=== PATIENT | female | born 1980 | race Caucasian/White ===

== ENCOUNTER 2016-08-24 21:54 | Emergency (ER) ==
[2016-08-24 22:37] VITALS: BP 120/68
[2016-08-24 22:57] LABS: URINE SOURCE CLEAN CATCH
[2016-08-24 23:11] LABS: BILIRUBIN URINE NEGATIVE (NEGATIVE); BLOOD URINE 1+ (NEGATIVE); CLARITY CLEAR (CLEAR); COLOR YELLOW; GLUCOSE URINE NEGATIVE (NEGATIVE); LEUKOCYTES URINE NEGATIVE (NEGATIVE); NITRITE URINE NEGATIVE (NEGATIVE); PH URINE 6.5; PROTEIN URINE NEGATIVE (NEGATIVE); URINE MICROSCOPIC NEEDED? YES; UROBILINOGEN URINE NORMAL
--- NOTE | 2016-08-24 23:18 | PROVIDER DOCUMENTATION ---
HPI-General Adult - General Chief Complaint: Flu Symptoms Stated Complaint: FLU SX 23 WKS PREG Time Seen by Provider: 08/24/16 23:01 Source: patient Allergies/Adverse Reactions: Patient Allergies Allergy/AdvReac Type Severity Reaction Status Date / Time fluoxetine HCl * Allergy ANAPHYLAXIS Verified 08/03/16 22:08 [From Prozac] Home Medications: Pnv Comb.no58/Iron Bisgly/FA [ Capsule] 1 cap PO DAILY 08/03/16 - History of Present Illness -Gen Adult Nature of Presenting Problems: 36 y/o WF c/o cough, sinus pressure, sore throat, body aches, fever x 1 day. Pt states has had influenza vaccine this year. Reports female and is 23+1 weeks, per OB. States fever up to 102F at home. Denies any productive cough, N /V/D/C, urinary sxs. Review of Systems - Adult - REVIEW OF SYSTEMS - ADULT Constitutional: reports: fever. denies: chills Eyes: reports: no symptoms reported. denies: blurred vision, double vision Ears, Nose, Mouth & Throat: reports: see HPI, sinus problem, throat pain. denies: ear pain, nose pain Cardiovascular: reports: no symptoms reported. denies: chest pain, palpitations Respiratory: reports: cough. denies: shortness of breath, wheezing Gastrointestinal: reports: no symptoms reported. denies: abdominal pain, diarrhea, nausea, vomiting Genitourinary: reports: no symptoms reported. denies: dysuria, frequency, flank pain Musculoskeletal: reports: see HPI, muscle aches. denies: joint pain, joint swelling Integumentary: reports: no symptoms reported. denies: nail changes, rash Neurological: reports: no symptoms reported. denies: numbness, paresthesia Psychiatric: reports: no symptoms reported Endocrine: reports: no symptoms reported. denies: cold intolerance, heat intolerance Hematologic/Lymphatic: reports: no symptoms reported. denies: easy bruising, prolonged bleeding Allergic/Immunologic: reports: no symptoms reported All Other Systems: Reviewed and Negative Past History - Adult - PAST MEDICAL HISTORY-ADULT Review of Records: reports: Nursing Assessment Review, Medications Reviewed Major Childhood Illnesses: reports: denies history Cardiovascular: reports: denies history Respiratory: reports: denies history Gastrointestinal: reports: denies history Genitourinary: reports: denies history Musculoskeletal: reports: denies history Neurological: reports: denies history Psychiatric: reports: depression Endocrine/Immune: reports: denies history - PRIOR SURGERIES/PROCEDURES Surgical/Procedure History: reports: none - PRIOR HOSPITALIZATIONS Prior Hospitalizations: reports: none - IMMUNIZATION STATUS Childhood Immunizations: See Nurse Assessment Flu Vaccine: See Nurse Assessment - FAMILY HISTORY Family History: reviewed, not pertinent - SOCIAL HISTORY Smoking: quit greater than 1 year Physical Exam-General - PHYSICAL EXAM-ADULT Initial Vital Signs Reviewed: Yes - CONSTITUTIONAL General Appearance: alert, mild distress - EYES Eyes: pink conjunctivae - HEAD, EARS, NOSE, MOUTH & THROAT HENMT: normocephalic/atraumatic, moist mucous membranes, pharyngeal erythema, tonsillar exudate, TM abnormal (red, bilat.). negative: frontal tenderness, maxillary tenderness - NECK Neck: supple, normal inspection, lymphadenopathy (ant. cervical, bilat.) - RESPIRATORY Respiratory: lungs clear, normal breath sounds. negative: crackles, rales, rhonchi, stridor, wheezing - CARDIOVASCULAR Cardiovascular: regular rate, rhythm. negative: bradycardia, tachycardia - GASTROINTESTINAL (ABDOMEN) Abdominal Exam: normal bowel sounds, other (fundal height 3 inches above umbilicus.) - MUSCULOSKELETAL Back Exam: no CVA tenderness Extremity: normal gait - SKIN Integumentary: normal color, normal turgor, warm/dry - NEUROLOGIC Neurologic: negative: aphasia - PSYCHIATRIC Psych/Mental Status: normal mood/affect, normal thought content, normal thought process, oriented x 3 Progress - PLAN OF CARE/RESULTS Progress/Plan/Lab Results: Laboratory Tests 08/24/16 08/24/16 08/24/16 22:35 22:35 22:50 Urine Source CLEAN CATCH Urine Color YELLOW Urine Clarity CLEAR Urine pH 6.5 Ur Specific [place] 1.020 Urine Protein NEGATIVE Urine Ketones 1+(Small) A Urine Blood 1+ A Urine Nitrite NEGATIVE Urine Bilirubin NEGATIVE Urine Urobilinogen NORMAL Urine Microscopic RBC <10 Urine WBC NEGATIVE Urine Microscopic WBC <10 Ur Epithelial Cells <10 Urine Bacteria 2+ Urine Casts GRANULAR PRESENT Urine Glucose NEGATIVE Influenza A (Rapid) NEGATIVE Influenza B (Rapid) NEGATIVE Group A Strep Rapid NEGATIVE Orders Category Date Time Status DIRECT STREP PL Stat Lab 08/24/16 22:[address] Stat Lab 08/24/16 22:[address] [URINALYSIS] Stat Lab 08/24/16 22:50 Completed URINE MICROSCOPIC [URINALYSIS] Stat Lab 08/24/16 22:50 Completed Penicillin V Potassium [Pen Vk] Med 08/24/16 23:47 Discontinued 500 mg PO NOW ONE Vital Signs Temp Pulse Resp BP Pulse Ox 08/24/16 22:31 98.1 F 137 H 18 120/68 97 fluoxetine HCl * [From Prozac] Allergy (Verified 08/03/16 22:08) ANAPHYLAXIS Pnv Comb.no58/Iron Bisgly/FA [ Capsule] 1 cap PO DAILY 08/03/16 Guaifenesin/Pseudoephedrne HCl [Mucinex D ER Tablet] 1 each PO BID #30 tab.er.12h 08/24/16 Penicillin V Potassium 500 mg PO BID #20 tablet 08/24/16 Laboratory 08/24/16 08/24/16 08/24/16 22:50 22:35 22:35 Urine Source CLEAN CATCH Urine Color YELLOW Urine Clarity CLEAR Urine pH 6.5 Ur Specific [place] 1.020 Urine Protein NEGATIVE Urine Ketones 1+(Small) A Urine Blood 1+ A Urine Nitrite NEGATIVE Urine Bilirubin NEGATIVE Urine Urobilinogen NORMAL Urine Microscopic RBC <10 Urine WBC NEGATIVE Urine Microscopic WBC <10 Ur Epithelial Cells <10 Urine Bacteria 2+ Urine Casts GRANULAR PRESENT Urine Glucose NEGATIVE Influenza A (Rapid) NEGATIVE Influenza B (Rapid) NEGATIVE Group A Strep Rapid NEGATIVE Discussed results, medication use and f/u with pt, including return precautions. Departure - Departure Time of Disposition Order: 23:43 DIAGNOSIS: URI (upper respiratory infection) Qualifiers: URI type: unspecified URI Qualified Code(s): J06.9 - Acute upper respiratory infection, unspecified Pharyngitis Qualifiers: Pharyngitis/tonsillitis etiology: unspecified etiology Qualified Code(s): J02.9 - Acute pharyngitis, unspecified DIAGNOSIS: (Ruled Out): Influenza Disposition: HOME 01 Certified Medical Emergency: Emergent Condition: Stable Additional Instructions: Take medications as directed. Follow up with PCP in 3-5 days for a recheck. Return if symptoms get worse. Tylenol for fever. ED Follow Up Instructions: You have been treated by a care provider in the Emergency Department. These instructions are being provided to you so you can have an understanding of how to care for yourself upon discharge. Upon discharge from the Emergency Department, you are responsible for making arrangements for follow-up care by a physician of your choice. Take all prescribed medications as directed. Return to the Emergency Department immediately for any new or worsening symptoms. You may call the Physician Referral phone number at [phone] to obtain a list of Physicians who are taking new patients. Prescriptions: Guaifenesin/Pseudoephedrne HCl [Mucinex D ER Tablet] 1 each PO BID #30 tab.er.12h Penicillin V Potassium 500 mg PO BID #20 tablet Referrals: Lemuel Knott [Primary Care Provider] - Forms: Return to School/Parent Work Instructions: Penicillin V tablets, Upper Respiratory Infection, Adult, Easy-to -Read, Guaifenesin oral ER tablets, Pharyngitis, [id number] Attestation - Physician/ Mid-level Attestation Patient care was provided by Mid-level provider ([employer]/PA):: Yes Mid-level provider:: Carol Gallardo Mid-level documentation review:: The Mid-level provider documentation, treatment plan and medical decision making was reviewed by the physician who agrees with all treatment and medical decision making by the MLP.
[2016-08-24 23:21] LABS: URINE CAST GRANULAR PRESENT /LPF; URINE EPITHELIAL CELLS <10 /HPF (<10); URINE RBC <10 /HPF (<10); URINE WBC <10 /HPF (<10)
[2016-08-24] MEDS ORDERED: PEN VK PO ONE (23:47)
== END 2016-08-25 00:09 | disposition home or self-care (01) ==
LOC: P.ED 21:54
DX: O26.892 Other specified pregnancy related conditions, second trimester (principal); J06.9 Acute upper respiratory infection, unspecified; J02.9 Acute pharyngitis, unspecified; R05 Cough; R09.81 Nasal congestion; R50.9 Fever, unspecified; M79.1 Myalgia; R59.0 Localized enlarged lymph nodes; Z3A.23 23 weeks gestation of pregnancy; Z87.891 Personal history of nicotine dependence
CPT/HCPCS: 81001; 87081; 87430; 87804; 99283

== ENCOUNTER 2016-12-06 20:21 | Inpatient (IN) ==
[2016-12-06] MEDS ORDERED: PEPCID IV PRN (20:41)
[2016-12-06] MEDS ORDERED: KEFZOL 1 GM/D5W 1 GM/50 ML IVPB IV PRN (20:41)
[2016-12-06] MEDS ORDERED: STADOL IV PRN ×3 (20:41)
[2016-12-06] MEDS ORDERED: BRETHINE SUBQ PRN (20:41)
[2016-12-06] MEDS ORDERED: AMBIEN PO PRN (20:41)
[2016-12-06] MEDS ORDERED: TYLENOL PO PRN (20:41)
[2016-12-06] MEDS ORDERED: PEPCID PO PRN (20:41)
[2016-12-06] MEDS: LR 1,000 ML IV ONE (21:13)
[2016-12-06 22:00] LABS: MANUAL DIFF NEEDED? NO; URINE SOURCE VOIDED
[2016-12-06 22:06] LABS: BASO% 0.3 % (0.0-0.8); EOS# 0.09 X1000 (0.0-0.7); EOS% 1.1 % (0.0-10.0); HEMATOCRIT 40.7 % (37.0-47.0); HEMOGLOBIN 13.2 g/dL (12.0-16.0); IMM GRAN# 0.06 X1000 (0.0-0.04); IMM GRAN% 0.8 % (0.0-0.5); LYMPH# 1.43 X1000 (1.2-3.4); LYMPH% 18.1 % (20.5-51.1); MCH 31.2 PG (27-31); MCHC 32.4 g/dL (33-37); MCV 96.2 FL (81-99); MONO# 0.59 X1000 (0.11-0.59); MONO% 7.5 % (1.7-9.3); MPV 9.6 FL (7.4-10.4); NEUT% 72.2 % (42.2-75.2); PLT 269 X1000 (130-400); RBC 4.23 XMIL (4.2-5.4)
[2016-12-06 22:09] LABS: BILIRUBIN URINE NEGATIVE (NEGATIVE); BLOOD URINE TRACE (NEGATIVE); CLARITY SL. CLOUDY (CLEAR); COLOR YELLOW; GLUCOSE URINE NEGATIVE (NEGATIVE); LEUKOCYTES URINE NEGATIVE (NEGATIVE); NITRITE URINE NEGATIVE (NEGATIVE); PROTEIN URINE TRACE mg/dL (NEGATIVE); UROBILINOGEN URINE NORMAL
[2016-12-06] MEDS ORDERED: CYTOTEC PO ONE (23:00)
[2016-12-07] MEDS: CYTOTEC PO SCH ×2 (03:19→07:32)
[2016-12-07] MEDS: LR 1,000 ML IV ONE (03:21)
[2016-12-07] MEDS ORDERED: LR 1,000 ML IV SCH (03:52)
[2016-12-07] MEDS ORDERED: PITOCIN 30 UNITS/LR 30 UNITS/500 ML IV.SOLN IV SCH (07:00)
[2016-12-07] MEDS ORDERED: MARCAINE 0.25% PF INJ ONE (07:30)
[2016-12-07] MEDS ORDERED: FENTANYL-BUPIV-NS 2 MCG-0.1% 200 ML EPIDURAL ONE (08:00)
[2016-12-07] MEDS ORDERED: MYLICON PO PRN (08:04)
[2016-12-07] MEDS ORDERED: MARCAINE 0.25% PF INJ PRN (15:21)
[2016-12-07] MEDS: FENTANYL-BUPIV-NS 2 MCG-0.1% 200 ML EPIDURAL PRN (21:01)
[2016-12-07] MEDS: ZOFRAN IV PRN (22:46)
[2016-12-08] MEDS ORDERED: MARCAINE 0.5% PF ONE (07:18)
[2016-12-08] MEDS ORDERED: FENTANYL ONE ×2 (07:19→09:39)
[2016-12-08] MEDS: FENTANYL-BUPIV-NS 2 MCG-0.1% 200 ML EPIDURAL PRN (07:34)
[2016-12-08] MEDS: ZOFRAN IV PRN (08:45)
[2016-12-08] MEDS ORDERED: NESACAINE-MPF 3% ONE (09:38)
[2016-12-08] MEDS ORDERED: XYLOCAINE-MPF 1% ONE (09:56)
[2016-12-08] MEDS ORDERED: MINERAL OIL ONE (09:56)
[2016-12-08] MEDS ORDERED: PITOCIN 20 UNITS/LR 20 UNITS/1,000 ML IV.SOLN ONE (12:06)
[2016-12-08] MEDS ORDERED: M-M-R II VACCINE SUBQ ONE (12:18)
[2016-12-08] MEDS ORDERED: HYDROXYZINE PO PRN (12:18)
[2016-12-08] MEDS ORDERED: PITOCIN IM PRN (12:18)
[2016-12-08] MEDS ORDERED: PRILOSEC PO PRN (12:18)
[2016-12-08] MEDS ORDERED: AMBIEN PO PRN (12:18)
[2016-12-08] MEDS ORDERED: PERI MEDS (DERMOPLAST/NUPERCAINAL/TUCKS) MISC PRN (12:18)
[2016-12-08] MEDS ORDERED: XYLOCAINE-MPF 1% INJ PRN (12:18)
[2016-12-08] MEDS ORDERED: NORCO-5 PO PRN (12:18)
[2016-12-08] MEDS ORDERED: PITOCIN 20 UNITS/LR 20 UNITS/1,000 ML IV.SOLN IV SCH (12:18)
[2016-12-08] MEDS ORDERED: PITOCIN 30 UNITS/LR 30 UNITS/500 ML IV.SOLN IV ONE (12:18)
[2016-12-08] MEDS ORDERED: NORCO-10 PO PRN (12:18)
[2016-12-08] MEDS ORDERED: MINERAL OIL PO PRN (12:18)
[2016-12-08] MEDS ORDERED: HYDROXYZINE IM PRN (12:18)
[2016-12-08] MEDS ORDERED: BENADRYL PO PRN (12:18)
[2016-12-08] MEDS ORDERED: BOOSTRIX VACCINE IM ONE (12:18)
[2016-12-08] MEDS ORDERED: CYTOTEC PO PRN (12:18)
[2016-12-08] MEDS ORDERED: BENADRYL IV PRN (12:18)
--- NOTE | 2016-12-08 14:58 | OPERATIVE NOTE ---
PROCEDURE DATE : 12/08/2016 PREOPERATIVE DIAGNOSES: 1. Intrauterine at 38+. 2. Advanced maternal age. 3. Gestational diabetes. 4. Rh negative blood type. POSTDELIVERY DIAGNOSES: 1. Intrauterine at 38+. 2. Advanced maternal age. 3. Gestational diabetes. 4. Rh negative blood type. 5. Maternal exhaustion. PROCEDURES: Vacuum-assisted vaginal delivery. PHYSICIAN: Aly Angel MD ANESTHESIA: Epidural done by Dr. Boyd. FINDINGS: Viable male , occiput anterior, over a second-degree midline laceration. No nuchal cord. Shoulders and rest of the body delivered without difficulty. Cord was three vessels. Placenta was spontaneous and intact. Repair of the laceration with 3-0 Polysorb in the usual fashion. ESTIMATED BLOOD LOSS: 100 mL COUNTS: All counts correct. DESCRIPTION OF PROCEDURE: Please refer to Ms. Singh's record. She was admitted Monday night, received cervical ripening for greater than 24 hours. Finally, after approximately 36 hours, she started making cervical changes, was artificially ruptured, received epidural anesthesia, reached complete cervical dilatation, began pushing, pushed for approximately an hour and 45 minutes, became exhausted, and with in occiput anterior and +4 station, the vacuum delivery was explained. Patient agreed. The [place] vacuum was applied to the 's head. Pressure was brought up to 550 mmHg, and with the next push and with use of the vacuum, the infant's head delivered occiput anterior. Once head delivered, the vacuum was disengaged and then shoulders and rest of the body delivered easily. placed in mother's abdomen, cord doubly clamped and cut. Care of was then taken over by nursery personnel. Three-vessel cord was noted. Cord blood was obtained. Repair of the laceration was done in the usual fashion with 3-0 Polysorb. Gentle traction resulted in delivery of the placenta after approximately 6 minutes. It was inspected and found to be intact. Vaginal sweep did not reveal any foreign material or clots in the vagina. All counts were correct. She was taken down from the labor position and expect routine recovery. cc: MD Grupo Chua MD
[2016-12-08] MEDS: MOTRIN PO PRN (16:24)
[2016-12-08] MEDS: PERICOLACE PO SCH (20:18)
[2016-12-09 06:10] LABS: MANUAL DIFF NEEDED? NO
[2016-12-09 06:35] LABS: BASO% 0.1 % (0.0-0.8); EOS# 0.12 X1000 (0.0-0.7); EOS% 0.8 % (0.0-10.0); HEMATOCRIT 33.3 % (37.0-47.0); IMM GRAN# 0.03 X1000 (0.0-0.04); IMM GRAN% 0.2 % (0.0-0.5); LYMPH# 1.62 X1000 (1.2-3.4); LYMPH% 11.4 % (20.5-51.1); MCH 32.4 PG (27-31); MCV 97.9 FL (81-99); MONO# 1.09 X1000 (0.11-0.59); MONO% 7.7 % (1.7-9.3); MPV 9.8 FL (7.4-10.4); NEUT% 79.8 % (42.2-75.2); PLT 225 X1000 (130-400)
[2016-12-09] MEDS: HEMOCYTE PLUS CAPSULE PO SCH (09:18)
[2016-12-09] MEDS ORDERED: MYLICON PO PRN (09:22)
[2016-12-09] MEDS: MOTRIN PO PRN (18:09)
[2016-12-09] MEDS ORDERED: EPIFOAM FOAM TOP PRN (18:13)
[2016-12-09] MEDS: PERICOLACE PO SCH (20:47)
[2016-12-10] MEDS: MOTRIN PO PRN ×2 (01:55→08:21)
[2016-12-10 08:08] VITALS: BP 117/75
[2016-12-10] MEDS: HEMOCYTE PLUS CAPSULE PO SCH (08:21)
== END 2016-12-10 12:05 | disposition home or self-care (01) ==
LOC: P.LD 20:21 → P.WC 12-08 16:08
PROVIDERS: ADMIT Obstetrics & Gynecology; ATTEND Obstetrics & Gynecology